=== PATIENT | female | born 1995 | race Caucasian/White ===

== ENCOUNTER 2025-05-21 18:33 | Emergency (ER) | payer OTHER, SELFPAY ==
[2025-05-21 18:34] VITALS: BP 141/122; PULSE 115; RESP 18; TEMP 36.4; O2SAT 100; BMI 28.4
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
[2025-05-21 21:25] VITALS: BP 138/98; PULSE 72; RESP 18; TEMP 36.8; O2SAT 99
== END 2025-05-21 21:27 | disposition home or self-care (01) ==
PROVIDERS: Emergency Provider Emergency Medicine; Referring Provider Emergency Medicine; Visit Provider Emergency Medicine
DX: S83.91XA Sprain of unspecified site of right knee, initial encounter (principal); S13.9XXA Sprain of joints and ligaments of unspecified parts of neck, initial encounter; V43.62XA Car passenger injured in collision with other type car in traffic accident, initial encounter; M25.531 Pain in right wrist
CPT/HCPCS: 70450; 72040; 72125; 73110; 73564; 99284